=== PATIENT | female | born 1970 | race Caucasian/White ===

== ENCOUNTER 2017-06-20 17:13 | Emergency (ER) | payer SELFPAY ==
[~2017-06-20] VITALS: Ht 162.6 cm; Wt 90.7 kg
== END 2017-06-20 17:45 | disposition left against medical advice (07) ==
LOC: ED 17:13
DX: Z53.21 Procedure and treatment not carried out due to patient leaving prior to being seen by health care provider (principal)

== ENCOUNTER 2017-11-02 11:46 | Emergency (ER) | payer OTHER ==
[~2017-11-02] VITALS: Ht 162.6 cm; Wt 90.7 kg
[2017-11-02] MEDS ORDERED: VENLAFAXINE H37.5 M1 PO (12:02)
[2017-11-02] MEDS ORDERED: GLIPIZIDE ER5 MG PO (12:03)
[2017-11-02] MEDS ORDERED: HYDROCHLOROTH12.5 MG PO (12:03)
[2017-11-02] MEDS ORDERED: LANTUS100 UNITS/ SUB-Q (12:03)
== END 2017-11-02 13:23 | disposition home or self-care (01) ==
LOC: ED 11:46
DX: R07.89 Other chest pain (principal); F06.4 Anxiety disorder due to known physiological condition; Z88.2 Allergy status to sulfonamides; Z88.5 Allergy status to narcotic agent; Z79.899 Other long term (current) drug therapy; Z79.4 Long term (current) use of insulin
CPT/HCPCS: 71010; 80053; 84484; 85025; 99283

== ENCOUNTER 2018-07-12 17:16 | Emergency (ER) | payer OTHER ==
[~2018-07-12] VITALS: Ht 170.2 cm; Wt 122.5 kg
--- OUTSIDE RECORDS SUMMARY | ~2018-07-12 | XMS | Encounter Summary ---
Demographics + + + | Address | [address] | | | [place] [address] | + + + | Home Phone | | + + + | Preferred Language | Unknown | + + + | Marital Status | | + + + | Oriental Orthodox Affiliation | Unknown | + + + | Race | Unknown | + + + | Ethnic Group | Unknown | + + + Author + + + | Author | [facility] | + + + | Organization | [facility] | + + + | Address | Unknown | + + + | Phone | Unavailable | + + + Support + + +---------+ + | Name | Relationship | Address | Phone | + + +---------+ + | Elina Avendaño | ECON | Unknown | | + + +---------+ + | Tk Mccormick | ECON | Unknown | | + + +---------+ + Care Team Providers + +------+ + | Care Thermodynamics Professor Name | Role | Phone | + +------+ + | Leanne Mac NP | PCP | | + +------+ + Reason for Visit + + + | Reason | Comments | + + + | Post-op Exam | 2nd post op. Pain level of 12/02 and relates her only concern is | | | the electrical shocking pain that continues. | + + + Consultation (Urgent) + + + + + + + | Status | Reason | Specialty | Diagnoses / | Referred By | Referred To | | | | | Procedures | Contact | Contact | + + + + + + + | Authorized | Specialty | Podiatry | Diagnoses | [place], | Serafin, | | | Services | | Foot | Vania Wharton, | Sergey Alvarado DPM | | | Required | | injury, | RADAR OPERATOR [address] | | | | | left, | [address] | | | | | initial | Avenue | [place], | | | | | encounter | [place], | [place] [address] | | | | | Foot | [place] [address] | Phone: | | | | | fracture, | Phone: | [phone] | | | | | left, | [phone] | Fax: | | | | | closed, | Fax: | [phone] | | | | | initial | [phone] | | | | | | encounter | | | + + + + + + + Encounter Details +--------+---------+ + + + | Date | Type | Department | Care Team | Description | +--------+---------+ + + + | 04/21/ | Office | [facility] Foot | Sergey Betancourt, | Post-operative state | | 2018 | Visit | and Ankle [address] | DPM [address], | (Primary Dx) | | | | [address] | [address] [place], | | | | | [place], [place] | [place] [address] | | | | | [address] | [phone] | | | | | [phone] | | | +--------+---------+ + + + Social History + +-------+ +--------+------+ | Tobacco Use | Types | Packs/Day | Years | Date | | | | | Used | | + +-------+ +--------+------+ | Never Smoker | | | | | + +-------+ +--------+------+ + +---+---+---+ | Smokeless Tobacco: | | | | | Never Used | | | | + +---+---+---+ + + +---------+ + | Alcohol Use | Drinks/We | oz/Week | Comments | | | ek | | | + + +---------+ + | Yes | 1 | 0.6 | per month | | | Standard | | | | | drinks or | | | | | | | | | | equivalen | | | | | t | | | + + +---------+ + + + + | Sex Assigned at | Date Recorded | | | | + + + | Not on file | | + + + as of this encounter Last Filed Vital Signs + + + + | Vital Sign | Reading | Time Taken | + + + + | Blood Pressure | 160/95 | 04/21/2018 8:10 AM PDT | + + + + | Pulse | 102 | 04/21/2018 8:10 AM PDT | + + + + | Temperature | 36.4 C (97.6 F) | 04/21/2018 8:10 AM PDT | + + + + | Respiratory Rate | - | - | + + + + | Oxygen Saturation | 95% | 04/21/2018 8:10 AM PDT | + + + + | Inhaled Oxygen | - | - | | Concentration | | | + + + + | Weight | - | - | + + + + | Height | - | - | + + + + | Body Mass Index | - | - | + + + + in this encounter Progress Notes Sergey Betancourt DPM - 04/21/2018 8:00 AM PDTFormatting of this note may be different fro m the original. Subjective: Patient ID: Ivonne Mccormick is a 48 y.o. female. Chief Complaint Patient presents with Post-op Exam 2nd post op. Pain level of 1/10 and relates her only concern is the electrical shocking p ain that continues. HPI Patient returns today status post Barclay fracture repair on 03/08/2018. Patient's pain is mi ld and well controlled. She started walking more on her foot about a week ago due to fear o f falling as she fell a couple of times and hit her head and hit her knee. No continued niles n in either area. The following portions of the patient's history were reviewed and updated as appropriate an d is available elsewhere in the record: allergies, current medications, past family history, past medical history, past social history, past surgical history and problem list. ROS Denies any nausea, vomiting, fever, chills, shortness of breath, chest pain, or calf pain Objective: BP (!) 160/95 | Pulse 102 | Temp 97.6 F (36.4 C) | SpO2 95% General observation: Constitutional: The patient is alert and oriented to person, place and time Psychiatric: The patient has normal affect and mood; her speech is normal; her behavior is normal. Respiratory: Effort normal and breath sounds normal. No accessory muscle usage. No respirat ory distress. Lower Extremity Examination: Neurovascular status is grossly intact. CFT is immediate to distal foot/toes. No dysvascula r changes. The incision(s) is(are) well coapted, without evidence of dehiscence - it(they) is(are) kayla an, dry and intact. There is no evidence of erythema, cellulitis, lymphangitis, drainage, malodor, or signs of infection. Normal skin temperature is appreciated. No pain on palpation of surgical site over to the fracture site No skin mottling. No hyperesthesias or paresthesias. No calf or thigh pain. Negative Homans sign. Radiographs: Normal postoperative appearance. See epic chart for complete read Assessment and Plan: S/p: Stabilization and repair of Barclay fracture left foot Date of surgery: 03/08/2018 Post op day/week: 6 weeks Wear the removable cast boot for the next 2 weeks with full weightbearing Then transition to normal shoe gear No restrictions thereafter F/u 6 weeks for recheck Sergey Betancourt DPM in this encounter Plan of Treatment Not on fileas of this encounter Results X-ray foot left 3 + views (04/21/2018 8:43 AM) + + + | Impressions | Performed At | + + + | 1. Healing fracture post screw fixation, mid diaphysis of the | [facility] | | fifth metatarsal Healing is progressing, but as yet incomplete | RADIOLOGY | | | | + + + + + + | Narrative | Performed At | + + + | History: 48 years old Female with pain. Technique: 3 views of | [facility] | | the left foot. 12 March 2018 prior study for comparison. Findings: | RADIOLOGY | | Healing fracture of the mid diaphysis of the fifth metatarsal, | | | approximated by screw. Healing is as yet incomplete, but | | | progressing. Alignment is anatomic and stable. Large calcaneal | | | heel spur noted incidentally at some degenerative change the midfoot, | | | not focal Bones the examination is otherwise unremarkable | | + + + + + | Procedure Note | + + | Avery, Rad Results In - 04/21/2018 5:53 PM PDT History: 48 years old Female with | | pain.Technique: 3 views of the left foot. 12 March 2018 prior study for | | comparison.Findings: Healing fracture of the mid diaphysis of the fifth metatarsal, | | approximated by screw.Healing is as yet incomplete, but progressing. Alignment is | | anatomic and stable.Large calcaneal heel spur noted incidentally at some degenerative | | change the midfoot, not focalBones the examination is otherwise | | unremarkableIMPRESSION:1. Healing fracture post screw fixation, mid diaphysis of the | | fifth metatarsalHealing is progressing, but as yet incomplete | | | |Bones the examination is otherwise unremarkable | | | |IMPRESSION: | | | |1. Healing fracture post screw fixation, mid diaphysis of the fifth metatarsal | | | |Healing is progressing, but as yet incomplete | | | | | + + + + + + + | Performing | Address | City/State/Zipcode | Phone Number | | Organization | | | | + + + + + | [facility] | [address] | [place] [address] | | + + + + + in this encounter Visit Diagnoses + + | Diagnosis | + + | Post-operative state - Primary | + + | Other postprocedural status | + +"
--- OUTSIDE RECORDS SUMMARY | ~2018-07-12 | XMS | Encounter Summary ---
Demographics + + + | Address | [address] | | | [place] [address] | + + + | Home Phone | | + + + | Preferred Language | Unknown | + + + | Marital Status | | + + + | Synagogue Affiliation | Unknown | + + + | Race | Unknown | + + + | Ethnic Group | Unknown | + + + Author + + + | Author | [facility] | + + + | Organization | [facility] | + + + | Address [...] Team Providers + +------+ + | Care Director Of Kids Name | Role | Phone | + +------+ + | Leanne Mac NP | PCP | | + +------+ + Reason for Visit + + + | Reason | Comments | + + + | Follow-up | Patient presents today for her 3rd post op. Patient has no new | | | concerns. She states it is achey off and on and swells | | | occasionally. /10 pain when it feels achey. | + + + Encounter Details +--------+---------+ + + + | Date | Type | Department | Care Team | Description | +--------+---------+ + + + | 06/09/ | Office | [facility] Foot | Sergey Betancourt, | Left foot pain | | 2018 | Visit | and Ankle [address] | DPM [address], | (Primary Dx) | | | | [address] | [address] [place], | | | | | [place], [place] | [place] [address] | | | | | [address] | [phone] | | | | | [phone] | | | +--------+---------+ + + + [...] this encounter Last Filed Vital Signs + +---------+ + | Vital Sign | Reading | Time Taken | + +---------+ + | Blood Pressure | 141/88 | 06/09/2018 8:14 AM PDT | + +---------+ + | Pulse | 89 | 06/09/2018 8:14 AM PDT | + +---------+ + | Temperature | - | - | + +---------+ + | Respiratory Rate | - | - | + +---------+ + | Oxygen Saturation | 95% | 06/09/2018 8:14 AM PDT | + +---------+ + | Inhaled Oxygen | - | - | | Concentration | | | + +---------+ + | Weight | - | - | + +---------+ + | Height | - | - | + +---------+ + | Body Mass Index | - | - | + +---------+ + in this encounter Instructions Patient Instructions - Sharmila Yuen MA - 06/09/2018 8:00 AM PDTPlease take a moment to let us know how we are doing You may receive an official survey in the mail or by phone. We appreciate your feedback an d take them to heart, let us know what went well and how we can make your experience better in the future. Your personal comments are also greatly appreciated on social media. Please take a moment to visit one of the below pages to rate us and leave your comments [employer] - Search Sergey Betancourt DPM and leave a review, comments are appreci ated [employer] - Search Sergey Betancourt DPM and leave a review, comments are appreciated Thank you for trusting us with your care!in this encounter Progress Notes Sergey Betancourt DPM - 06/09/2018 8:00 AM PDTFormatting of this note may be different fro m the original. Subjective: Patient ID: Ivonne Mccormick is a 48 y.o. female. Chief Complaint Patient presents with Follow-up Patient presents today for her 3rd post op. Patient has no new concerns. She states it is achey off and on and swells occasionally. 4/10 pain when it feels achey. HPI Patient returns today status post Barclay fracture repair on 03/08/2018. Patient has been wal genie in normal shoe since her last visit. She feels that she is doing very well. She has n o pain except for occasional aching. The following portions of the patient's history were reviewed and updated as appropriate an d is available elsewhere in the record: allergies, current medications, past family history, past medical history, past social history, past surgical history and problem list. ROS Denies any nausea, vomiting, fever, chills, shortness of breath, chest pain, or calf pain Objective: BP 141/88 (BP Location: Left upper arm, Patient Position: Sitting) | Pulse 89 | SpO2 95% General observation: Constitutional: The [...] dysvascula r changes. The incision(s) is(are) well healed, scar is very fine There is no evidence of erythema, cellulitis, [...] Date of surgery: 03/08/2018 Post op day/week: 13 weeks Patient is doing very well, she is satisfied with her results No new concerns Follow-up roxann Betancourt DPM in this encounter Plan of Treatment Not on fileas of this encounter Visit Diagnoses + + | Diagnosis | + + | Left foot pain - Primary | + + | Pain in limb | + +"
--- OUTSIDE RECORDS SUMMARY | ~2018-07-12 | XMS | Encounter Summary ---
Demographics + + + | Address | [address] | | | [place] [address] | + + + | Home Phone | | + + + | Preferred Language | Unknown | + + + | Marital Status | | + + + | Latter Day Affiliation | Unknown | + + + | Race | Unknown | + + + | Ethnic Group | Unknown | + + + Author + + + | Author | [facility] | + + + | Organization | [facility] | + + + | Address [...] Team Providers + +------+ + | Care Sign Builder Name | Role | Phone | + [...] | | Required | | injury, | REHAB RN [address] | | | | | left, | [address] | | | | | initial | Avenue | [place], | | | | | encounter | [place], | [place] [address] | | | | | Foot | [place] [address] | Phone: | | | | | fracture, | Phone: | [phone] | | | | | left, | [phone] | Fax: | | | | | closed, | Fax: | [phone] | | | | | initial | [phone] | | | | | | encounter | | | + + + + + + + Encounter Details +--------+---------+ + + + | Date | Type | Department | Care Team | Description | +--------+---------+ + + + | 04/21/ | Office | [facility] Foot | Sergey Betancourt, | Post-operative state | | 2018 | Visit | and Ankle [address] | DPM [address], | (Primary Dx) | | | | [address] | [address] [place], | | | | | [place], [place] | [place] [address] | | | | | [address] | [phone] | | | | | [phone] | | | +--------+---------+ + + + [...] | + + + + + | [facility] | [address] | [place] [address] | | + + + + + in this encounter Visit Diagnoses + + | Diagnosis | + + | Post-operative state - Primary | + + | Other postprocedural status | + +"
--- OUTSIDE RECORDS SUMMARY | ~2018-07-12 | XMS | Clinical Summary ---
Demographics + + + | Address | [address] | | | [place] [address] | + + + | Home Phone | | + + + | Preferred Language | Unknown | + + + | Marital Status | | + + + | Confucianist Affiliation | Unknown | + + + | Race | Unknown | + + + | Ethnic Group | Unknown | + + + Author + + + | Author | [facility] | + + + | Organization | [facility] | + + + | Address [...] Team Providers + +------+ + | Care Sheet Layer Name | Role | Phone | + +------+ + | Leanne Mac TISSUE INSERTER | PP | | + +------+ + Allergies + + + + + + | Active Allergy | Reactions | Severity | Noted | Comments | | | | | Date | | + + + + + + | Codeine | Hallucinations | Medium | 12/18/19 | | | | | | 18 | | + + + + + + | Sulfa Antibiotics | Rash | Medium | 12/18/19 | | | | | | 18 | | + + + + + + Current Medications + + +---------+---------+------+------+-------+ | Prescription | Sig. | Disp. | Refills | Star | End | Statu | | | | | | t | Date | s | | | | | | Date | | | + + +---------+---------+------+------+-------+ | | 12.5 mg daily. | | 1 | 01/1 | | Activ | | hydrochlorothiazide | | | | 8/20 | | e | | (HYDRODIURIL) 12.5 | | | | 18 | | | | MG tablet | | | | | | | + + +---------+---------+------+------+-------+ | venlafaxine | 37.5 mg 2 (two) | | 1 | 01/2 | | Activ | | (EFFEXOR) 37.5 MG | times daily. | | | 2/20 | | e | | tablet | | | | 18 | | | + + +---------+---------+------+------+-------+ | atorvastatin | Take 1 tablet by | 30 | 11 | 01/2 | 01/2 | Activ | | (LIPITOR) 10 MG | mouth nightly. | tablet | | 6/20 | 6/20 | e | | tablet | | | | 18 | 19 | | + + +---------+---------+------+------+-------+ | insulin glargine | Inject 30 Units into | 10 mL | 12 | /2 | /2 | Activ | | (LANTUS) 100 UNIT/ML | the skin nightly. | | | 6/20 | 6/20 | e | | injection | | | | 18 | 19 | | + + +---------+---------+------+------+-------+ | Insulin | 1 each by Does not | 100 | 11 | 01/2 | | Activ | | Syringe-Needle U-100 | apply route daily. | each | | 6/20 | | e | | (INSULIN SYRINGE | | | | 18 | | | | .5CC/31GX5/16") 31G | | | | | | | | X 5/16" 0.5 ML MISC | | | | | | | + + +---------+---------+------+------+-------+ | metFORMIN | Take 2 tablets by | 60 | 11 | 12/24 | 12/24 | Activ | | (GLUCOPHAGE-XR) 500 | mouth daily with | tablet | | 06/11 | 06/11 | e | | MG 24 hr tablet | dinner. | | | 18 | 19 | | + + +---------+---------+------+------+-------+ | cyclobenzaprine | Take 10 mg by mouth | | | | | Activ | | (FLEXERIL) 10 MG | 3 (three) times | | | | | e | | tablet | daily as needed for | | | | | | | | Muscle spasms. | | | | | | + + +---------+---------+------+------+-------+ | glipiZIDE | Take 2 tablets by | 60 | 11 | 02/22 | 02/22 | Activ | | (GLUCOTROL) 10 MG 24 | mouth daily. | tablet | | 02/09 | 02/09 | e | | hr tablet | | | | 18 | 19 | | + + +---------+---------+------+------+-------+ | metoprolol | Take 1 tablet by | 90 | 3 | 05/0 | 05/0 | Activ | | (TOPROL-XL) 50 MG 24 | mouth daily. | tablet | | 3/20 | 3/20 | e | | hr tablet | | | | 18 | 19 | | + + +---------+---------+------+------+-------+ | hydrOXYzine | Take 25 mg by mouth | | 0 | 06/0 | | Activ | | (ATARAX) 25 MG | every 6 (six) hours | | | 5/20 | | e | | tablet | as needed. | | | 18 | | | + + +---------+---------+------+------+-------+ Active Problems No known active problems Encounters +--------+---------+ + + + | Date | Type | Specialty | Care Team | Description | +--------+---------+ + + + | 06/09/ | Office | | Betancourt, Sergey L, | Left foot pain | | 2018 | Visit | | DPM | (Primary Dx) | +--------+---------+ + + + | 04/21/ | Office | | Sergey Betancourt, | Post-operative state | | 2017 | Visit | | DPM | (Primary Dx) | +--------+---------+ + + + from Last 3 Months Family History + +------+--------+ + | Relation | Name | Status | Comments | + +------+--------+ + | Father | | Alive | | + +------+--------+ + | Mother | | Alive | | + +------+--------+ + Social History + +-------+ +--------+------+ | [...] on file | | + + + Last Filed Vital Signs + + + + | Vital Sign | Reading | Time Taken | + + + + | Blood Pressure | 141/88 | 06/09/2018 8:14 AM PDT | + + + + | Pulse | 89 | 06/09/2018 8:14 AM PDT | + + + + | Temperature | 36.4 C (97.6 F) | 04/21/2018 8:10 AM PDT | + + + + | Respiratory Rate | 20 | 03/25/2018 1:18 PM PDT | + + + + | Oxygen Saturation | 95% | 06/09/2018 8:14 AM PDT | + + + + | Inhaled Oxygen | - | - | | Concentration | | | + + + + | Weight | 128.4 kg (283 lb) | 03/25/2018 1:18 PM PDT | + + + + | Height | 170.2 cm (5' 7") | 03/25/2018 1:18 PM PDT | + + + + | Body Mass Index | 44.32 | 03/25/2018 1:18 PM PDT | + + + + Plan of Treatment + + + + + | Health Maintenance | Due Date | Last Done | Comments | + + + + + | Vaccine: | | | | | Dtap/Tdap/Td (1 - | 1 | | | | Tdap) | | | | + + + + + | Cervical Cancer | | | | | Screening (Pap) | 2 | | | + + + + + | Statin Therapy | | | | | (optimal intensity) | 7 | | | + + + + + | Vaccine: Influenza | | | | | (#1) | 8 | | | + + + + + Implants + +------+--------+ +--------+--------+--------+ | Implanted | Type | Area | Manufacture | Device | Expira | Model | | | | | r | | tion | / | | | | | | Identi | Date | Serial | | | | | | fier | | / Lot | + +------+--------+ +--------+--------+--------+ | 4.5mm Low Profile Barclay | | Left: | ARTHREX | | | [id number]-[id number] | | Screw, Titanium, Part | | Foot | | | | 5-60PT | | ThreadImplanted: Qty: 1 on | | | | | | /NA | | 03/08/2018 by Sergey Betancourt | | | | | | /NA | | L, DPM | | | | | | | + +------+--------+ +--------+--------+--------+ Procedures + +--------+ + + + | Procedure Name | Priori | Date/Time | Associated Diagnosis | Comments | | | ty | | | | + +--------+ + + + | XR FOOT LEFT | Routin | 04/21/2018 | Left foot pain | Results for this | | | e | 8:43 AM | | procedure are in the | | | | PDT | | results section. | + +--------+ + + + from Last 3 Months Results X-ray foot left 3 + views [...] | Procedure Note | + + | Mich Varela Results In - 04/21/2018 5:53 PM PDT [...] | + + + + + | [facility] | [address] | [place] [address] | | + + + + + from Last 3 Months Insurance + +--------+ +------+-------+---------+ | Payer | Benefi | Subscriber | Type | Phone | Address | | | t Plan | ID | | | | | | / | | | | | | | Group | | | | | + +--------+ +------+-------+---------+ | COMMERCIAL OTHER | COMMER | [id number] | | | | | | CIAL | | | | | | | GENERI | | | | | | | C PLAN | | | | | + +--------+ +------+-------+---------+ + +--------+ +--------+ + + | Guarantor Name | Accoun | Relation to | Date | Phone | Billing Address | | | t Type | Patient | of | | | | | | | | | | + +--------+ +--------+ + + | JOSE MCCORMICK | Person | Self [birth year] | Home: | [address] | | | al/Fam | | 1970 | [phone] | [place] [address] | | | maureen | | [phone] | | + +--------+ +--------+ + +
--- OUTSIDE RECORDS SUMMARY | ~2018-07-12 | XMS | Encounter Summary ---
Demographics + + + | Address | [address] | | | [place] [address] | + + + | Home Phone | | + + + | Preferred Language | Unknown | + + + | Marital Status | | + + + | Scientologist Affiliation | Unknown | + + + | Race | Unknown | + + + | Ethnic Group | Unknown | + + + Author + + + | Author | [facility] | + + + | Organization | [facility] | + + + | Address [...] Team Providers + +------+ + | Care Client Relation Specialist Name | Role | Phone | + [...] + + | 06/09/ | Office | [facility] | Sergey Betancourt, | Left foot pain | | 2018 | Visit | [address] Ankle [address] | DPM [address], | (Primary Dx) | | | | [address] | [address] [place], | | | | | [place], [place] | [place] [address] | | | | | [address] | [phone] | | | | | [phone] | | | +--------+---------+ + + + [...] to rate us and leave your comments [employer] - Search Sergey Betancourt DPM and leave a review, comments are appreci ated via680 - Search Sergey Betancourt DPM and leave [...]
--- OUTSIDE RECORDS SUMMARY | ~2018-07-12 | XMS | Clinical Summary ---
Demographics + + + | Address | [address] | | | [place] [address] | + + + | Home Phone | | + + + | Preferred Language | Unknown | + + + | Marital Status | | + + + | Orthodoxy Affiliation | Unknown | + + + | Race | Unknown | + + + | Ethnic Group | Unknown | + + + Author + + + | Author | [facility] | + + + | Organization | [facility] | + + + | Address [...] Team Providers + +------+ + | Care Stretcher Leveler Operator Name | Role | Phone | + +------+ + | Leanne Mac CONSULTANT TEACHER | PP | | + +------+ + [...] | + + + + + | [facility] | [address] | [place] [address] | | + + + + + from Last 3 Months Insurance + +--------+ +------+-------+---------+ | Payer | Benefi | Subscriber | Type | Phone | Address | | | t Plan | ID | | | | | | / | | | | | | | Group | | | | | + +--------+ +------+-------+---------+ | COMMERCIAL OTHER | COMMER | [id number] | | | | | | CIAL [...] | 1970 | [phone] | [place] [address] | | | maureen | | | [phone] | | + +--------+ +--------+ + +
[~2018-07-12 17:16] MED LIST: GLIPIZIDE ER5 MG PO; HYDROCHLOROTH12.5 MG PO; LANTUS100 UNITS/ SUB-Q; VENLAFAXINE H37.5 M1 PO
[2018-07-12] MEDS ORDERED: METOPROLOL SUCC25 MG PO (17:46)
[2018-07-12] MEDS ORDERED: METFORMIN HCL1000 MG PO (17:46)
[2018-07-12] MEDS ORDERED: GLIPIZIDE ER10 MG PO (17:46)
[2018-07-12] MEDS ORDERED: HYDROXYZINE HCL25 MG PO (17:47)
[2018-07-12] MEDS ORDERED: REGLAN10 MG PO (19:29)
== END 2018-07-12 19:56 | disposition home or self-care (01) ==
LOC: ED 17:16
DX: G43.909 Migraine, unspecified, not intractable, without status migrainosus (principal); E11.9 Type 2 diabetes mellitus without complications; I10 Essential (primary) hypertension; Z88.2 Allergy status to sulfonamides; Z88.5 Allergy status to narcotic agent; Z79.899 Other long term (current) drug therapy; Z79.4 Long term (current) use of insulin
CPT/HCPCS: 96374; 96375; 99283; J1200; J1885; J2765; J7030

== ENCOUNTER 2018-12-17 06:12 | Emergency (ER) | payer OTHER ==
[~2018-12-17] VITALS: Ht 170.2 cm; Wt 122.5 kg
[~2018-12-17 06:12] MED LIST changes: +GLIPIZIDE ER10 MG PO; +HYDROXYZINE HCL25 MG PO; +METFORMIN HCL1000 MG PO; +METOPROLOL SUCC25 MG PO; +REGLAN10 MG PO
--- OUTSIDE RECORDS SUMMARY | 2018-12-17 06:16 | XMS ---
PreManage Notification: JOSE HERNANDEZ Security Compressor Technician Events 1 event(s) in the past 18 months Most recent security events: Elopement at [facility] 06/20/2017 17:14 - Patient eloped before treatment completed. Details: [facility] CRITERIA MET - Group Notification CARE PROVIDERS DRE BERUMEN Primary Care 06/23/2017-Current PHONE: [phone] Pravin has no Care Guidelines for this patient. [place] VISIT COUNT (12 MO.) 2 [facility] TOTAL 2 NOTE: Visits indicate total known visits. ED/UCC VISIT TRACKING (12 MO.) 12/17/2018 06:13 [facility] TYPE: Emergency COMPLAINT: - CHEST PAIN/VOMITING 07/12/2018 17:17 [facility] TYPE: Emergency COMPLAINT: - HEADACHE,NAUSEA DIAGNOSES: - Type 2 diabetes mellitus without complications - Essential (primary) hypertension - senior care (current) use of insulin - Migraine, unspecified, not intractable, without status migrainosus - Allergy status to sulfonamides status - Other alf (current) drug therapy - Headache - Allergy status to narcotic agent status INPATIENT VISIT TRACKING (12 MO.) No inpatient visits to display in this time frame [email or web address]
[2018-12-17] MEDS ORDERED: PHENERGAN25 MG PO (10:46)
--- NOTE | 2018-12-17 20:04 | EKG ---
[facility] [address] [place], [place] [address] Signed Sinus tachycardia Septal infarct , age undetermined Abnormal ECG No previous ECGs available Confirmed by MALIHA FRAIRE MD ([id number]) on 12/17/2018 8:04:10 PM Electronically Signed By: MALIHA FRAIRE MD 12/17/18 2004 PATIENT NAME: JOSE HERNANDEZ Electrocardiogram DATE OF : 74 PHYSICIAN: MALIHA FRAIRE MD REPORT #: [id number] REPORT IS CONFIDENTIAL AND NOT TO BE RELEASED WITHOUT AUTHORIZATION
== END 2018-12-17 11:00 | disposition home or self-care (01) ==
LOC: ED 06:12
DX: E11.69 Type 2 diabetes mellitus with other specified complication (principal); K52.9 Noninfective gastroenteritis and colitis, unspecified; I10 Essential (primary) hypertension; F32.9 Major depressive disorder, single episode, unspecified; Z88.2 Allergy status to sulfonamides; Z88.5 Allergy status to narcotic agent; Z90.49 Acquired absence of other specified parts of digestive tract; Z79.4 Long term (current) use of insulin; Z79.899 Other long term (current) drug therapy
CPT/HCPCS: 71045; 74177; 80053; 81001; 83690; 84484; 84703; 85025; 85379; 93005; 93010; 96361; 96365; 96375; 96376; 99285-25; C9113; J1170; J1815; J2405; J2550; J7030; Q9967

== ENCOUNTER 2018-12-31 12:16 | Emergency (ER) | payer OTHER ==
[~2018-12-31] VITALS: Ht 170.2 cm; Wt 122.5 kg
[~2018-12-31 12:16] MED LIST changes: +PHENERGAN25 MG PO
--- OUTSIDE RECORDS SUMMARY | 2018-12-31 12:18 | XMS ---
PreManage Notification: JOSE HERNANDEZ Security Kiln Fireman Events No recent Security Events currently on file CRITERIA MET - Group Notification - [facility] - Has Care Guidelines - [facility] - 2 Visits in 30 Days CARE PROVIDERS BOLA POLANCO Student in an Organized Health Care 12/17/2018-Current Education/Training Program PHONE: [phone] DRE BERUMEN Primary Care 06/23/2017-Current PHONE: [phone] Pravin has no Care Guidelines for this patient. Care History Medical/Surgical 12/17/2018 [facility] - Patient is currently established with [facility]. If patient is seen in the ED during business hours. Please contact CHWs at [facility]. Care Recommendation: This patient has had 5 or more Emergency Department visits in the last 12 months.\T\nbsp; Patient requires education on the scope and purpose of the ED as an acute care provider not a Primary Care Provider and should not be utilized for chronic conditions.\T\nbsp; These are guidelines and the provider should exercise clinical judgment when providing care. [place] VISIT COUNT (12 MO.) 3 [facility] TOTAL 3 NOTE: Visits indicate total known visits. ED/UCC VISIT TRACKING (12 MO.) 12/31/2018 12:17 [facility] TYPE: Emergency COMPLAINT: - VOMITING 12/17/2018 06:13 [facility] TYPE: Emergency COMPLAINT: - CHEST PAIN/VOMITING DIAGNOSES: - buttermaker helper (current) use of insulin - Noninfective gastroenteritis and colitis, unspecified - Other long-term (current) drug therapy - Other chest pain - Allergy status to sulfonamides status - Major depressive disorder, single episode, unspecified - Essential (primary) hypertension - Acquired absence of other specified parts of digestive tract - Type 2 diabetes mellitus with other specified complication - Allergy status to narcotic agent status 07/12/2018 17:17 [facility] TYPE: Emergency COMPLAINT: - HEADACHE,NAUSEA DIAGNOSES: - Type 2 diabetes mellitus without complications - Essential (primary) hypertension - buttermaker helper (current) use of insulin - Migraine, unspecified, not intractable, without status migrainosus - Allergy status to sulfonamides status - Other laborer marine terminal (current) drug therapy - Headache - Allergy status to narcotic agent status INPATIENT VISIT TRACKING (12 MO.) No inpatient visits to display in this time frame [email or web address]
[2018-12-31] MEDS ORDERED: FLAGYL500 MG PO (14:50)
[2018-12-31] MEDS ORDERED: CIPRO500 MG PO (14:50)
[2018-12-31] MEDS ORDERED: PHENERGAN25 MG PR (14:50)
== END 2018-12-31 14:58 | disposition home or self-care (01) ==
LOC: ED 12:16
DX: R10.11 Right upper quadrant pain (principal); R11.2 Nausea with vomiting, unspecified; E11.9 Type 2 diabetes mellitus without complications; I10 Essential (primary) hypertension; F32.9 Major depressive disorder, single episode, unspecified; Z90.49 Acquired absence of other specified parts of digestive tract; Z88.2 Allergy status to sulfonamides; Z88.5 Allergy status to narcotic agent; Z79.4 Long term (current) use of insulin; Z79.899 Other long term (current) drug therapy
CPT/HCPCS: 74177; 80053; 81001; 83690; 85025; 96361; 99284-25; J2405; J7030; Q9967